=== PATIENT | male | born 1980 | race Caucasian/White ===

== ENCOUNTER → 2022-02-26 | Outpatient (CLI) | payer OTHER ==
[~2022-02-26] MED LIST: LANTINJ4 SC; METF500T13 PO; OMEP10CASR PO; PRAZ2CAP PO; TRAZ-257 PO
== END ==
LOC: M PLAIMG 10:02
PROVIDERS: ATTEND Physician Assistant
DX: M25.561 Pain in right knee (principal); S83.221A Peripheral tear of medial meniscus, current injury, right knee, initial encounter; X58.XXXA Exposure to other specified factors, initial encounter; Y92.9 Unspecified place or not applicable; Y93.9 Activity, unspecified; Y99.9 Unspecified external cause status; M94.261 Chondromalacia, right knee; M25.461 Effusion, right knee; S83.511A Sprain of anterior cruciate ligament of right knee, initial encounter

== ENCOUNTER → 2022-07-22 | Outpatient (CLI) | payer OTHER | LOC: M EKG 11:14 | PROVIDERS: ATTEND Orthopaedic Surgery | DX: Z01.818 Encounter for other preprocedural examination (principal) ==

== ENCOUNTER → 2022-08-02 | Outpatient (CLI) | payer OTHER | LOC: M RAD 11:13 | PROVIDERS: ATTEND Physician Assistant Surgical | DX: M79.604 Pain in right leg (principal); S83.241D Other tear of medial meniscus, current injury, right knee, subsequent encounter ==

== ENCOUNTER → 2025-08-23 | Outpatient (CLI) | payer OTHER | LOC: M RAD 07:43 | PROVIDERS: ATTEND Orthopaedic Surgery Hand Surgery | DX: M25.561 Pain in right knee (principal) ==